=== PATIENT | female | born 1970 | race Caucasian/White ===

== ENCOUNTER 2020-12-08 10:31 | Outpatient (RCR) | payer BC, SELFPAY | END 2021-02-20 23:59 | LOC: IMMUN 10:31 | PROVIDERS: PCP Physician Assistant; Visit Provider Family Medicine | DX: Z23 Encounter for immunization (principal) | CPT/HCPCS: 0001A; 0002A; 91300 ==

== ENCOUNTER 2023-05-15 20:13 | Emergency (ER) | payer BC, SELFPAY ==
[2023-05-15 20:14] VITALS: BP 140/91; PULSE 90; RESP 16; TEMP 36.6; O2SAT 100; BMI 28.4
--- NOTE | 2023-05-15 22:05 | EDS_ITS ---
HPI History of Present Illness Chief Complaint: Wound Check Informant: patient Narrative Narrative: Patient donated blood several days ago. They blew her vein in her right antecubital fossa, and she ended up with a significant amount of ecchymosis. Its not really bothering her anymore. Today, she spontaneously noticed a small bluish swollen area distal to this in her volar forearm and she was concerned this may be a blood clot and that it could kill her in her sleep. She denies any history of clotting disorders or DVTs that she knows of, there is no swelling in the right upper extremity distal to the abnormal area, she does not remember hitting it, and she denies any chest pain or shortness of breath or other systemic symptoms. [facility] Medical History (Updated 05/15/23 @ 22:[address] Israel Sevilla MD) Anxiety Hypertension Medical History no medical history Home Medications brexpiprazole 1 mg tablet (Rexulti) 1 mg PO DAILY 05/15/23 [History Last Taken Unknown] fluoxetine 20 mg capsule 20 mg PO BID 05/15/23 [History Last Taken Unknown] lisinopril 10 mg tablet 10 mg PO DAILY 05/15/23 [History Last Taken Unknown] Allergy/AdvReac Type Severity Reaction Status Date / Time Sulfa (Sulfonamide Allergy Hives Verified 05/15/23 20:14 Antibiotics) Social History Smoking Status: Current every day smoker tobacco type: smokeless tobacco ROS ROS ED Constitutional Constitutional ED: Denies chills or fever(s) Musculoskeletal Musculoskeletal: Denies extremity pain or neck pain Integumentary Reports as per HPI; Denies Abrasions, rash or wounds Neurologic Neurologic: Denies paresthesias or weakness EXAM Physical Exam Const Vital Signs: 05/15/23 20:14 Temperature 97.9 F Temperature Source Temporal Pulse Rate 90 Respiratory Rate 16 Blood Pressure 140/91 H Blood Pressure Mean 107 Pulse Ox 100 Positive well nourished and well developed General Appearance ED: well developed and NAD Neck full ROM and supple Back/Spine normal ROM and normal to inspection Extremity full ROM Extremity Narrative: Right upper extremity: Full range of motion all joints, small barely tender just subcutaneous nodule that is bluish discoloration mid right volar forearm, no edema distal to this, it does not palpate like a cord at all. This is discrete from the ecchymotic/purpuric area more proximal to this. All compartments soft and nondistended. Neurovascular intact distally with normal radial pulse. Neuro oriented x3, no focal motor deficits and no sensory deficits noted Sensorium / Orientation: alert Psych mental status grossly normal and thought process normal Skin Skin Narrative: Small bluish discolored chest to subcutaneous minimally tender area about a centimeter or less in diameter at the mid volar right forearm. This is discrete from a purpuric area at the medial aspect of the antecubital fossa more proximal to this which is nontender. Rashes: no rashes MDM MDM MDM Narrative Medical decision making narrative: Patient reassured that this is not a DVT. I do not think it is an SVT either, but if it was it would be indicated to apply warm compresses as needed which I advised her she could do tomorrow if she wanted. Discharge Plan Triage Chief Complaint: Wound Check ED Provider: Israel Sevilla Dx/Rx/DC Orders Clinical Impression: Traumatic ecchymosis of multiple sites of right upper arm Instructions: Bruises (Contusions) Prescriptions: No Action fluoxetine 20 mg capsule 20 mg PO BID lisinopril 10 mg tablet 10 mg PO DAILY Rexulti 1 mg tablet 1 mg PO DAILY Primary Care Provider: Jennifer Reina NP Referrals: Jennifer Reina NP, [facility] [Primary Care Provider] - As Needed Disposition Disposition: Home, Self Care
[2023-05-15 22:13] VITALS: RESP 18
== END 2023-05-15 22:13 | disposition home or self-care (01) ==
PROVIDERS: Emergency Provider Emergency Medicine; PCP Registered Nurse; Visit Provider Emergency Medicine
DX: S40.021A Contusion of right upper arm, initial encounter (principal); F17.220 Nicotine dependence, chewing tobacco, uncomplicated; I10 Essential (primary) hypertension; F41.9 Anxiety disorder, unspecified; Z79.899 Other long term (current) drug therapy; X58.XXXA Exposure to other specified factors, initial encounter; Y93.89 Activity, other specified
CPT/HCPCS: 99282